=== PATIENT | male | born 1995 | race Caucasian/White ===

== ENCOUNTER 2019-09-23 11:21 | Emergency (ER) | payer BC ==
[~2019-09-23] VITALS: Ht 177.8 cm; Wt 70.3 kg
[2019-09-23] MEDS ORDERED: MELOXICAM15 MG PO (11:36)
[2019-09-23] MEDS ORDERED: FLEXERIL PO (11:36)
[2019-09-23] MEDS ORDERED: CYCLOBENZAPRINE5 MG PO (11:56)
[2019-09-23] MEDS ORDERED: NAPROSYN500 MG PO (11:56)
[2019-09-23 12:03] VITALS: BP 140/75
== END 2019-09-23 12:20 | disposition home or self-care (01) ==
LOC: ER 11:21
DX: S29.012A Strain of muscle and tendon of back wall of thorax, initial encounter (principal); V43.52XA Car driver injured in collision with other type car in traffic accident, initial encounter; Y93.89 Activity, other specified; Y92.89 Other specified places as the place of occurrence of the external cause; Y99.8 Other external cause status